=== PATIENT | female | born 1990 | race Caucasian/White ===

== ENCOUNTER → 2017-08-17 | Outpatient (CLI) | payer BC ==
--- NOTE | 2017-08-17 17:16 | RADIOLOGY IMAGING REPORT ---
FACILITY: [facility] PATIENT NAME: Deisy Britt : 1990 MR: [id number] V: [id number] EXAM DATE: ORDERING PHYSICIAN: LISA RENE TECHNOLOGIST: Location: [facility] [place] Patient: Deisy Britt : 1990 Visit/Account:[id number] Date of Sevice: 08/17/2017 KNEE 3 VIEW RIGHT Indication: Chronic pain Comparison: None available Findings: No evidence of fracture, dislocation, or acute osseous abnormality of the right knee. The joint spaces are well-maintained. No evidence of joint effusion. There is no focal soft tissue abnormality. No evidence of radiopaque foreign body. IMPRESSION: 1. Negative right knee Report Dictated By: Arben Gomez at 08/17/2017 5:12 PM Report E-Signed By: Arben Gomez at 08/17/2017 5:13 PM WSN:[id number]
== END ==
LOC: RAD 16:30
PROVIDERS: ATTEND Chiropractor
DX: M25.561 Pain in right knee (principal)